=== PATIENT | male | born 1980 | race Caucasian/White ===

== ENCOUNTER 2018-09-04 13:39 | Emergency (ER) ==
[2018-09-04 13:54] VITALS: BP 146/98; TEMP 98; BMI 28.0
--- NOTE | 2018-09-04 13:55 | ED.PDOC ---
General ED Provider: Dr. MARITZA HUERTA MD Chief Complaint: Nausea/Vomiting Stated Complaint: burning stomach pain Time Seen by Physician: 02:00 Mode of Arrival: Walk-In Information Source: Patient Exam Limitations: No limitations Nursing and Triage Documentation Reviewed and Agree: Yes Does patient meet sepsis criteria?: No If yes, has appropriate treatment been initiated?: Yes System Inflammatory Response Syndrome: Not Applicable Sepsis Protocol: For patient's 13 years and over: Temp is 96.8 and below OR 101 and greater Pulse >90 BPM Resp >20/minute Acutely Altered Mental Status Are patient's symptoms suggestive of a new infection, such as: -Pneumonia -Skin, Soft Tissue -Endocarditis -UTI -Bone, Joint Infection -Implantable Device -Acute Abdominal Infection -Wound Infection -Meningitis -Blood Stream Catheter Infection -Unknown GI Complaint Exam - Abdominal Pain Complaint/Exam Onset: Gradual Symptoms Are: Still present Timing: Intermittent Initial Severity: Mild Current Severity: Moderate Location of Pain: Epigastric Character: Reports: Burning Aggravating: Reports: Food, Position, Eating (worse with red sauce) Related History: Reports: Similar episode AAA Risk Factors: Reports: None Cardiac Risk Factors: Reports: None Testicular Torsion Risk Factors: Reports: None Surgical Obstruction Risk Factors: Reports: None Related Surgical History: Reports: None Abdominal Findings: Present: None Genitalia Exam: Present: Normal findings Rectal Exam: Present: Normal Findings Differential Diagnoses: Gastroenteritis, Other (gerd) Review of Systems - Review Of Systems Constitutional: Reports: Other (reflux) Eyes: Reports: No symptoms Ears, Nose, Mouth, Throat: Reports: No symptoms Respiratory: Reports: No symptoms Cardiac: Reports: No symptoms GI: Reports: Abdominal pain : Reports: No symptoms Musculoskeletal: Reports: No symptoms Skin: Reports: No symptoms Neurological: Reports: No symptoms Endocrine: Reports: No symptoms Hematologic/Lymphatic: Reports: No symptoms All Other Systems: Reviewed and Negative Past Medical History - Past Medical History Previously Healthy: Yes Endocrine: Reports: None Cardiovascular: Reports: None Respiratory: Reports: None Hematological: Reports: None Gastrointestinal: Reports: GERD Genitourinary: Reports: None Neuro/Psych: Reports: None Musculoskeletal: Reports: None Cancer: Reports: None - Surgical History General Surgical History: Reports: None - Family History Family History: Reports: None - Social History Smoking Status: Current every day smoker Hx Substance Use: No Alcohol Screening: None Physical Exam - Physical Exam Appearance: Well-appearing, No pain distress, Well-nourished Ill-appearing: Mild Pain Distress: Mild Eyes: HARDIK, EOMI, Conjunctiva clear ENT: Ears normal, Nose normal, Oropharynx normal Respiratory: Airway patent, Breath sounds clear, Breath sounds equal, Respirations nonlabored Cardiovascular: RRR, Pulses normal, No rub, No murmur GI/: Tender Musculoskeletal: Normal strength, ROM intact, No edema, No calf tenderness Skin: Warm, Dry, Normal color Neurological: Sensation intact, Motor intact, Reflexes intact, Cranial nerves intact, Alert, Oriented Psychiatric: Affect appropriate, Mood appropriate Critical Care Note - Critical Care Note Total Time (mins): 0 Course - Course Hematology/Chemistry: 09/04/18 14:10 09/04/18 14:10 Orders, Labs, Meds: Lab Review 09/04/18 09/04/18 14:10 14:10 WBC 7.90 RBC 4.62 L Hgb 14.7 Hct 41.7 L MCV 90.3 MCH 31.8 H MCHC 35.3 RDW Coeff of Ashish 11.8 Plt Count 228 Immature Gran % (Auto) 0.5 Neut % (Auto) 67.4 Lymph % (Auto) 23.5 [place] % (Auto) 6.7 Eos % (Auto) 1.4 Baso % (Auto) 0.5 Immature Gran # (Auto) 0.0 Neut # (Auto) 5.3 Lymph # (Auto) 1.9 [place] # (Auto) 0.5 Eos # (Auto) 0.1 Baso # (Auto) 0.0 Sodium 136.0 L Potassium 3.75 Chloride 105.3 Carbon Dioxide 24.7 Anion Gap 9.75 BUN 10.0 Creatinine 0.82 Estimated GFR (MDRD) 105.00 BUN/Creatinine Ratio 12.19 Glucose 97.8 Calcium 9.17 Total Bilirubin 0.48 AST 23.1 ALT 23.7 Alkaline Phosphatase 67.6 Total Protein 6.88 Albumin 4.06 Globulin 2.82 Albumin/Globulin Ratio 1.43 Amylase 72.6 Lipase 93.9 Orders Category Date Time Status AMYLASE Stat LAB 09/04/18 14:10 Completed CBC W/ AUTO DIFF Stat LAB 09/04/18 14:10 Completed CMP [COMPREHENSIVE METABOLIC PANEL] Stat LAB 09/04/18 14:10 Completed LIPASE Stat LAB 09/04/18 14:10 Completed Mag-Al Plus//Lidocaine [Gi Cocktail] MEDS 09/04/18 13:57 Discontinued 30 ml PO ONCE STA Sodium Chloride 0.9% [Sodium Chloride] 1,000 ml MEDS 09/04/18 13:58 Discontinued IV BOLUS KUB [ABDOMEN 1 VIEW] Stat RADS 09/04/18 13:56 Completed Medications Discontinued Medications Generic Name Dose Route Start Last Admin Trade Name Cici PRN Reason Stop Dose Admin Al Hydroxide/Mg Hydroxide 30 ml 09/04/18 13:57 09/04/18 14:22 Gi Cocktail PO 09/04/18 13:58 30 ml ONCE STA Administration Sodium Chloride 1,000 mls @ 1,000 mls/hr 09/04/18 13:58 09/04/18 14:26 Sodium Chloride IV 09/04/18 14:57 1,000 mls/hr BOLUS STA Administration Vital Signs: Temp Pulse Resp BP Pulse Ox 09/04/18 13:41 98.0 F 80 20 146/98 H 98 Departure - Departure Time of Disposition: 03:15 Disposition: HOME SELF-CARE Discharge Problem: Abdominal pain Instructions: Gastroesophageal Reflux Disease (ED) Condition: Stable Pt referred to PMD for follow-up: Yes IPMP verified?: No Allergies/Adverse Reactions: Allergies No Known Allergies Allergy (Unverified 09/04/18 13:44) Home Medications: Ambulatory Orders 1 [No Reported Medications] 09/04/18 Transfer Form Completed: No Disposition Discussed With: Patient, Family (mg citrate Betaine)
[2018-09-04] MEDS ORDERED: GI COCKTAIL PO STA (13:57)
[2018-09-04] MEDS ORDERED: SODIUM CHLORIDE 1,000 ML IV STA (13:58)
--- NOTE | 2018-09-04 14:17 | DI ---
EXAM: Single view of the abdomen. History: Epigastric abdominal pain. Findings: Nonspecific but nonobstructive bowel gas pattern. Scattered colonic stool. No free intra peritoneal air. No acute osseous abnormalities and no suspicious calcifications. Impression: No acute findings
== END 2018-09-04 15:30 | disposition home or self-care (01) ==
LOC: ED 13:39
DX: K21.9 Gastro-esophageal reflux disease without esophagitis (principal); F17.210 Nicotine dependence, cigarettes, uncomplicated
CPT/HCPCS: 36415; 80053; 82150; 83690; 85025; 96360; 99283